=== PATIENT | male | born 1975 | race Caucasian/White ===

== ENCOUNTER → 2018-06-13 | Outpatient (CLI) | payer OTHER ==
--- NOTE | 2018-06-13 10:04 | KCIC ---
EXAM: MRI left foot, attention to the midfoot DATE: 06/13/2018 8:00 AM CLINICAL HISTORY: COMPARISON: Radiographs 05/16/2018, 06/02/2018 TECHNIQUE: Multiplanar multisequence MR imaging of the left midfoot was performed without IV contrast. FINDINGS: There is a comminuted fracture at the base of the fourth metatarsal extending into the fourth TMT joint. There is no tarsometatarsal offset of the fourth TMT joint. Diffuse associated edema is seen within the base and shaft of the fourth metatarsal. There is mild marrow edema within the base of the second metatarsal with subtle hypointense T1 signal within the base also consistent with nondisplaced fracture. There is no tarsometatarsal offset. Mild edema about the central band of the Lisfranc ligament consistent with low-grade sprain. Soft tissue edema is seen about the midfoot in the region of these fractures. The visualized flexor and extensor tendons are intact. The plantar fascia is intact. Focal marrow edema is seen at the lateral aspect of the talar dome with overlying 3 mm x 4 mm region of chondral thinning and effacement. IMPRESSION: 1. Nondisplaced comminuted intra-articular fracture of the base of the fourth metatarsal. 2. Nondisplaced fracture of the base of the second metatarsal without discrete articular extension. 3. No tarsometatarsal offset although mild edema about the otherwise intact Lisfranc ligament suggests low-grade sprain. 4. 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 Electronically signed by: Hollis Castellano MD (06/13/2018 10:00 AM) [id number]
== END | disposition home or self-care (01) ==
LOC: KCIC MRI 07:34
PROVIDERS: ATTEND Orthopaedic Surgery Sports Medicine
DX: S92.345A Nondisplaced fracture of fourth metatarsal bone, left foot, initial encounter for closed fracture (principal); S92.325A Nondisplaced fracture of second metatarsal bone, left foot, initial encounter for closed fracture; M19.072 Primary osteoarthritis, left ankle and foot; X58.XXXA Exposure to other specified factors, initial encounter; Y93.89 Activity, other specified; Y92.89 Other specified places as the place of occurrence of the external cause; Y99.8 Other external cause status
CPT/HCPCS: 73718